=== PATIENT | female | born 1995 | race Caucasian/White ===

== ENCOUNTER 2021-02-01 16:32 | Inpatient (IN) | payer BC ==
[2021-02-01] MEDS ORDERED: Sodium Chloride 0.9% 10 ML SDV IV PRN (17:01)
[2021-02-01] MEDS ORDERED: Misoprostol 25 MCG (1/4 of 100 MCG) Tab VAG PRN ×4 (17:01→17:07)
[2021-02-01] MEDS ORDERED: Methylergonovine 0.2 MG/1 ML Amp IM PRN (17:01)
[2021-02-01] MEDS ORDERED: Sodium Chloride 0.9% 2.5 ML Syringe FLUSH PRN (17:01)
[2021-02-01] MEDS ORDERED: Water For Irrigation,Sterile 1,000 ML Container IRR PRN (17:01)
[2021-02-01] MEDS ORDERED: Lidocaine 1% 50 ML MDV INJECT PRN (17:01)
[2021-02-01] MEDS ORDERED: Terbutaline 1 MG/ML SDV SUBCUT PRN ×2 (17:01→17:07)
[2021-02-01] MEDS ORDERED: Butorphanol 1 MG/ML SDV IVPUSH PRN (17:01)
[2021-02-01] MEDS ORDERED: Nalbuphine 10 MG/1 ML Vial IVPUSH PRN (17:01)
[2021-02-01] MEDS ORDERED: Carboprost Tromethamine 250 MCG/1 ML Amp IM PRN (17:01)
[2021-02-01] MEDS ORDERED: Misoprostol 200 MCG Tab PO PRN (17:01)
[2021-02-01] MEDS ORDERED: Sodium Chloride 0.9% 10 ML Syringe FLUSH PRN (17:01)
[2021-02-01] MEDS ORDERED: Tranexamic Acid 1,000 MG in Sodium Chloride 0.9% 100 ML IV PRN (17:01)
[2021-02-01] MEDS ORDERED: Oxytocin/0.9 % Sodium Chloride 30 UNIT/500 ML BAG IV SCH ×3 (17:15)
[2021-02-01] MEDS: Lactated Ringers 1,000 ML IV SCH ×2 (17:45→23:05)
[2021-02-02 01:55] LABS: CARBON DIOXIDE,CO2 18.9 mmol/L (21.0-32.0); POTASSIUM,K 4.9 mmol/L (3.5-5.1)
[2021-02-02] MEDS: Lactated Ringers 1,000 ML IV SCH ×2 (03:59→07:53)
[2021-02-02] MEDS ORDERED: Ropivacaine HCl/PF 100 ML ONE (04:23)
[2021-02-02] MEDS ORDERED: fentaNYL 100 MCG/2 ML SDV ONE (04:23)
--- NOTE | 2021-02-02 04:40 | PCM.PREANE ---
Preanesthetic Assessment - Anesthesia/Transfusion/Family Hx Anesthesia History: No Prior Anesthesia Family History of Anesthesia Reaction: No Transfusion History: No Prior Transfusion(s) - Physical Assessment NPO Status Date: 02/02/21 NPO Status Time: 00:05 Height: 1.63 m Weight: 98.43 kg ASA Class: 2 - Lab Values: Laboratory Last Values WBC 16.91 K/uL (4.0-11.0) H 02/01/21 17:45 RBC 5.19 M/uL (4.30-5.90) 02/01/21 17:45 Hgb 15.3 g/dL (12.0-16.0) 02/01/21 17:45 Hct 44.7 % (36.0-46.0) 02/01/21 17:45 MCV 86.1 fL (80.0-98.0) 02/01/21 17:45 MCH 29.5 pg (27.0-32.0) 02/01/21 17:45 MCHC 34.2 g/dL (31.0-37.0) 02/01/21 17:45 RDW Std Deviation 44.1 fl (28.0-62.0) 02/01/21 17:45 RDW Coeff of Pan 15 % (11.0-15.0) 02/01/21 17:45 Plt Count 224 K/uL (150-400) 02/01/21 17:45 MPV 13.30 fL (7.40-12.00) H 02/01/21 17:45 Nucleated RBC % 0.0 /100WBC 02/01/21 17:45 Nucleated RBCs # 0 K/uL 02/01/21 17:45 Sodium 140 mmol/L (136-145) 02/01/21 17:45 Potassium 4.9 mmol/L (3.5-5.1) 02/01/21 17:45 Chloride 104 mmol/L (98-107) 02/01/21 17:45 Carbon Dioxide 18.9 mmol/L (21.0-32.0) L 02/01/21 17:45 BUN 23 mg/dL (7.0-18.0) H 02/01/21 17:45 Creatinine 1.2 mg/dL (0.6-1.0) H 02/01/21 17:45 Est Cr Clr Drug Dosing 60.81 mL/min 02/01/21 17:45 Estimated GFR (MDRD) 53.9 ml/min 02/01/21 17:45 Glucose 109 mg/dL (74-106) H 02/01/21 17:45 Uric Acid 10.7 mg/dL (2.6-7.2) H 02/01/21 17:45 Calcium 8.8 mg/dL (8.5-10.1) 02/01/21 17:45 Total Bilirubin 0.2 mg/dL (0.2-1.0) 02/01/21 17:45 AST 57 IU/L (15-37) H 02/01/21 17:45 ALT 113 IU/L (14-63) H 02/01/21 17:45 Alkaline Phosphatase 196 U/L (46-116) H 02/01/21 17:45 Total Protein 7.1 g/dL (6.4-8.2) 02/01/21 17:45 Albumin 3.3 g/dL (3.4-5.0) L 02/01/21 17:45 Globulin 3.8 g/dL (2.6-4.0) 02/01/21 17:45 Albumin/Globulin Ratio 0.9 (0.9-1.6) 02/01/21 17:45 Ur Random Creatinine 122.4 mg/dL 02/02/21 01:04 U Random Total Protein 29.7 mg/dL (<11.9) H 02/02/21 01:04 Protein/Creatinin Ratio 0.2 02/02/21 01:04 SARS-CoV-2 RNA (GREGG) NEGATIVE (NEGATIVE) 02/01/21 17:30 Blood Type O POSITIVE 02/01/21 17:45 Antibody Screen NEGATIVE 02/01/21 17:45 - Allergies Allergies/Adverse Reactions: Allergies Allergy/AdvReac Type Severity Reaction Status Date / Time No Known Allergies Allergy Verified 02/01/21 17:11 - Acknowledgements Anesthesia Type Planned: Epidural Pt an Appropriate Candidate for the Planned Anesthesia: Yes Alternatives and Risks of Anesthesia Discussed w Pt/Guardian: Yes Pt/Guardian Understands and Agrees with Anesthesia Plan: Yes PreAnesthesia Questionnaire - Past Health History Medical/Surgical History: Denies Medical/Surgical History - SUBSTANCE USE Tobacco Use Status *Q: Never Tobacco User Second Hand Smoke Exposure: No Recreational Drug Use History: No - CURRENT (IN HOUSE) MEDS Current Meds: Current Medications Butorphanol Tartrate (Butorphanol 1 Mg/Ml Sdv) 1 mg IVPUSH Q1H PRN PRN Reason: Pain Last Admin: 02/02/21 01:58 Dose: 1 mg Documented by: Carboprost Tromethamine (Carboprost Tromethamine 250 Mcg/1 Ml Amp) 250 mcg IM ASDIRECTED PRN PRN Reason: Post Hemorrhage Oxytocin/Sodium Chloride (Oxytocin 30 Unit/500 Ml-Ns) 30 unit in 500 mls @ 2 mls/hr IV TITRATE MADHU; Protocol Lactated Ringer's (Ringers, Lactated) 1,000 mls @ 150 mls/hr IV ASDIRECTED MADHU Last Admin: 02/02/21 03:59 Dose: 999 mls/hr Documented by: Oxytocin/Sodium Chloride (Oxytocin 30 Unit/500 Ml-Ns) 30 unit in 500 mls @ 999 mls/hr IV TITRATE MADHU Tranexamic Acid 1,000 mg/ (Sodium Chloride) 110 mls @ 660 mls/hr IV ONETIME PRN PRN Reason: Bleeding Lidocaine HCl (Lidocaine 1% 50 Ml Mdv) 50 ml INJECT ONETIME PRN PRN Reason: Laceration repair Methylergonovine Maleate (Methylergonovine 0.2 Mg/1 Ml Amp) 0.2 mg IM ASDIRECTED PRN PRN Reason: Post Hemorrhage Misoprostol (Misoprostol 25 Mcg (1/4 Of 100 Mcg) Tab) 25 mcg VAG ONETIME PRN PRN Reason: Cervical Ripening Last Admin: 02/01/21 18:26 Dose: 25 mcg Documented by: Misoprostol (Misoprostol 25 Mcg (1/4 Of 100 Mcg) Tab) 25 mcg VAG Q4H PRN PRN Reason: Cervical Ripening Last Admin: 02/01/21 23:37 Dose: 25 mcg Documented by: Misoprostol (Misoprostol 200 Mcg Tab) 200 mcg PO ONETIME PRN PRN Reason: Post Hemorrhage Nalbuphine HCl (Nalbuphine 10 Mg/1 Ml Vial) 10 mg IVPUSH Q1H PRN PRN Reason: Pain (severe 7-10) Sodium Chloride (Sodium Chloride 0.9% 10 Ml Syringe) 10 ml FLUSH ASDIRECTED PRN PRN Reason: Keep Vein Open Sodium Chloride (Sodium Chloride 0.9% 2.5 Ml Syringe) 2.5 ml FLUSH ASDIRECTED PRN PRN Reason: Keep Vein Open Sodium Chloride (Sodium Chloride 0.9% 10 Ml Sdv) 10 ml IV ASDIRECTED PRN PRN Reason: IV Use Sterile Water (Water For Irrigation,Sterile 1,000 Ml Container) 1,000 ml IRR ASDIRECTED PRN PRN Reason: delivery Terbutaline Sulfate (Terbutaline 1 Mg/Ml Sdv) 0.25 mg SUBCUT ASDIRECTED PRN PRN Reason: Tacysystole Discontinued Medications Fentanyl (Fentanyl 100 Mcg/2 Ml Sdv) Confirm Administered Dose 100 mcg .ROUTE .STK-MED ONE Stop: 02/02/21 04:24 Ropivacaine (Naropin 0.2%) Confirm Administered Dose 100 mls @ as directed .ROUTE .STK-MED ONE Stop: 02/02/21 04:24
--- NOTE | 2021-02-02 04:43 | PCM.PRNOTE ---
- Free Text/Narrative Note: Anes Note Patient requests epidural for L&D. Sitting position, level L3-L4 midline appraoch. Sterile technique. Choraprep scrub to lumbar area. Sterile fenestrated drape applied. Epidural space easily achived single attempt with ease using [place] technique. [place] at 3 cm. Cath threaded 5 cm with ease. Cath secured at skin using sterile clear adhesive dressing. 0430 Test 3 cc 1.4% lido with epi negative. 0435 Load 10 cc 0.2% ropiviciane with 1 mcg cc fentanyl inslow divided doses. 0440 Pumps started with 90 cc same solution. Rate is 8 cc hr with 6 cc q 20 min prn bolus. Siddhartha well. Time with patient [id number] Jong Bailey [employer]
[2021-02-02 06:21] LABS: CARBON DIOXIDE,CO2 21.3 mmol/L (21.0-32.0); POTASSIUM,K 3.9 mmol/L (3.5-5.1)
[2021-02-02] MEDS ORDERED: Oxytocin/0.9 % Sodium Chloride 30 UNIT/500 ML BAG ONE ×2 (07:22→12:09)
[2021-02-02] MEDS ORDERED: Calcium Gluconate 10% 1 GM/10 ML SDV IV PRN (07:46)
[2021-02-02] MEDS ORDERED: Magnesium Sulfate/Water 4 GM in Premix Bag 1 BAG IV ONE (07:46)
[2021-02-02] MEDS ORDERED: Magnesium Sulfate/Water 4 GM/100 ML BAG ONE (08:04)
[2021-02-02] MEDS ORDERED: Sodium Chloride 0.9% 1,000 ML IV ONE (08:33)
[2021-02-02] MEDS: Magnesium Sulfate/Water 20 GM/500 ML BAG IV SCH ×2 (08:46→18:51)
[2021-02-02] MEDS ORDERED: Ibuprofen 800 MG Tab PO PRN (11:57)
[2021-02-02] MEDS ORDERED: oxyCODONE 5 MG Tab PO PRN (11:57)
[2021-02-02] MEDS ORDERED: Docusate Sodium 100 MG Cap PO PRN (11:57)
[2021-02-02] MEDS ORDERED: Acetaminophen 500 MG Tab PO PRN (11:57)
[2021-02-02] MEDS ORDERED: Benzocaine/Menthol 20%-0.5% Spray 78 GM Cannister TOP PRN (11:57)
[2021-02-02] MEDS ORDERED: Bisacodyl 10 MG Supp RECTAL PRN (11:57)
[2021-02-02] MEDS ORDERED: Lanolin 100% Cream 7 GM Tube TOP PRN (11:57)
[2021-02-02] MEDS ORDERED: Witch Hazel Medicated Pads 40/Jar TOP PRN (11:57)
--- NOTE | 2021-02-02 12:07 | PCM.DEL ---
L & D Note - General Info Date of Service: 02/02/21 Mother's Due Date: 01/27/21 - Delivery Note Labor: Augmented by ARM, Augmented by Oxytocin Cervical Ripening Method: Prostaglandin E2 Delivery Outcome: Livebirth Infant Delivery Method: Spontaneous Vaginal Delivery-Single Presentation: Right Occiput Anterior (AIDEN) Nuchal Cord: Present (x2), Reduced (after delivery of body) Anesthesia Type: Epidural, Local Anesthetic: Lidocaine (Xylocaine) 1% Plain Amniotic Fluid Description: Meconium Stained Episiotomy Type: None Laceration: 1st Degree, Periurethral Suture type: Vicryl Suture size: 2-0 Placenta: Intact, Spontaneous Cord: 3 Vessels Estimated Blood Loss: 800 Resuscitation Needed: Yes Bishop: Suctioned, Cathether, Stimulated, Warmed, Warmer Used Provider: Martine Laird Score 1 min: 2 Score 5 min: 8 Delivery Comments (Free Text/Narrative):: Live male infant, weight 4100g. Given 1000mcg misoprostol per rectum, pitocin per IV, and 1g tranexamic acid IV. On magnesium for preeclampsia with severe features/HELLP syndrome - next labs due at 1230. Placenta sent to pathology. - General Info Date of Service: 02/02/21 - Patient Data Weight - Most Recent: 98.43 kg Lab Results Last 24 Hours: Laboratory Results - last 24 hr 02/01/21 02/01/21 02/01/21 Range/Units 17:30 17:45 17:45 WBC 16.91 H (4.0-11.0) K/uL RBC 5.19 (4.30-5.90) M/uL Hgb 15.3 (12.0-16.0) g/dL Hct 44.7 (36.0-46.0) % MCV 86.1 (80.0-98.0) fL MCH 29.5 (27.0-32.0) pg MCHC 34.2 (31.0-37.0) g/dL RDW Std Deviation 44.1 (28.0-62.0) fl RDW Coeff of Pan 15 (11.0-15.0) % Plt Count 224 (150-400) K/uL MPV 13.30 H (7.40-12.00) fL Nucleated RBC % 0.0 /100WBC Nucleated RBCs # 0 K/uL Cord ABG pH (7.18-7.38) Cord ABG Base Excess (-10--2) Cord VBG pH (7.25-7.45) Cord VBG Base Excess (-10--2) Sodium (136-145) mmol/L Potassium (3.5-5.1) mmol/L Chloride (98-107) mmol/L Carbon Dioxide (21.0-32.0) mmol/L BUN (7.0-18.0) mg/dL Creatinine (0.6-1.0) mg/dL Est Cr Clr Drug Dosing mL/min Estimated GFR (MDRD) ml/min Glucose (74-106) mg/dL Uric Acid (2.6-7.2) mg/dL Calcium (8.5-10.1) mg/dL Total Bilirubin (0.2-1.0) mg/dL AST (15-37) IU/L ALT (14-63) IU/L Alkaline Phosphatase (46-116) U/L Total Protein (6.4-8.2) g/dL Albumin (3.4-5.0) g/dL Globulin (2.6-4.0) g/dL Albumin/Globulin Ratio (0.9-1.6) Ur Random Creatinine mg/dL U Random Total Protein (<11.9) mg/dL Protein/Creatinin Ratio SARS-CoV-2 RNA (GREGG) NEGATIVE (NEGATIVE) Blood Type O POSITIVE Antibody Screen NEGATIVE 02/01/21 02/02/21 02/02/21 Range/Units 17:45 01:04 05:47 WBC 21.16 H (4.0-11.0) K/uL RBC 4.81 (4.30-5.90) M/uL Hgb 13.7 (12.0-16.0) g/dL Hct 41.7 (36.0-46.0) % MCV 86.7 (80.0-98.0) fL MCH 28.5 (27.0-32.0) pg MCHC 32.9 (31.0-37.0) g/dL RDW Std Deviation 45.0 (28.0-62.0) fl RDW Coeff of Pan 15 (11.0-15.0) % Plt Count 200 (150-400) K/uL MPV 12.60 H (7.40-12.00) fL Nucleated RBC % 0.2 /100WBC Nucleated RBCs # 0 K/uL Cord ABG pH (7.18-7.38) Cord ABG Base Excess (-10--2) Cord VBG pH (7.25-7.45) Cord VBG Base Excess (-10--2) Sodium 140 (136-145) mmol/L Potassium 4.9 (3.5-5.1) mmol/L Chloride 104 (98-107) mmol/L Carbon Dioxide 18.9 L (21.0-32.0) mmol/L BUN 23 H (7.0-18.0) mg/dL Creatinine 1.2 H (0.6-1.0) mg/dL Est Cr Clr Drug Dosing 60.81 mL/min Estimated GFR (MDRD) 53.9 ml/min Glucose 109 H (74-106) mg/dL Uric Acid 10.7 H (2.6-7.2) mg/dL Calcium 8.8 (8.5-10.1) mg/dL Total Bilirubin 0.2 (0.2-1.0) mg/dL AST 57 H (15-37) IU/L ALT 113 H (14-63) IU/L Alkaline Phosphatase 196 H (46-116) U/L Total Protein 7.1 (6.4-8.2) g/dL Albumin 3.3 L (3.4-5.0) g/dL Globulin 3.8 (2.6-4.0) g/dL Albumin/Globulin Ratio 0.9 (0.9-1.6) Ur Random Creatinine 122.4 mg/dL U Random Total Protein 29.7 H (<11.9) mg/dL Protein/Creatinin Ratio 0.2 SARS-CoV-2 RNA (GREGG) (NEGATIVE) Blood Type Antibody Screen 02/02/21 02/02/21 02/02/21 Range/Units 05:47 11:03 11:03 WBC (4.0-11.0) K/uL RBC (4.30-5.90) M/uL Hgb (12.0-16.0) g/dL Hct (36.0-46.0) % MCV (80.0-98.0) fL MCH (27.0-32.0) pg MCHC (31.0-37.0) g/dL RDW Std Deviation (28.0-62.0) fl RDW Coeff of Pan (11.0-15.0) % Plt Count (150-400) K/uL MPV (7.40-12.00) fL Nucleated RBC % /100WBC Nucleated RBCs # K/uL Cord ABG pH 7.264 (7.18-7.38) Cord ABG Base Excess -5 (-10--2) Cord VBG pH 7.356 (7.25-7.45) Cord VBG Base Excess -8 (-10--2) Sodium 139 (136-145) mmol/L Potassium 3.9 (3.5-5.1) mmol/L Chloride 105 (98-107) mmol/L Carbon Dioxide 21.3 (21.0-32.0) mmol/L BUN 20 H (7.0-18.0) mg/dL Creatinine 1.4 H (0.6-1.0) mg/dL Est Cr Clr Drug Dosing 52.12 mL/min Estimated GFR (MDRD) 45.1 ml/min Glucose 96 (74-106) mg/dL Uric Acid 11.1 H (2.6-7.2) mg/dL Calcium 9.1 (8.5-10.1) mg/dL Total Bilirubin 0.4 (0.2-1.0) mg/dL AST 67 H (15-37) IU/L ALT 131 H (14-63) IU/L Alkaline Phosphatase 175 H (46-116) U/L Total Protein 6.3 L (6.4-8.2) g/dL Albumin 2.7 L (3.4-5.0) g/dL Globulin 3.6 (2.6-4.0) g/dL Albumin/Globulin Ratio 0.8 L (0.9-1.6) Ur Random Creatinine mg/dL U Random Total Protein (<11.9) mg/dL Protein/Creatinin Ratio SARS-CoV-2 RNA (GREGG) (NEGATIVE) Blood Type Antibody Screen Med Orders - Current: Current Medications Butorphanol Tartrate (Butorphanol 1 Mg/Ml Sdv) 1 mg IVPUSH Q1H PRN PRN Reason: Pain Last Admin: 02/02/21 01:58 Dose: 1 mg Documented by: Calcium Gluconate (Calcium Gluconate 10% 1 Gm/10 Ml Sdv) 1 gm IV ASDIRECTED PRN PRN Reason: respiratory distress Carboprost Tromethamine (Carboprost Tromethamine 250 Mcg/1 Ml Amp) 250 mcg IM ASDIRECTED PRN PRN Reason: Post Hemorrhage Oxytocin/Sodium Chloride (Oxytocin 30 Unit/500 Ml-Ns) 30 unit in 500 mls @ 2 mls/hr IV TITRATE MADHU; Protocol Last Admin: 02/02/21 09:20 Dose: 2 munits/min, 2 mls/hr Documented by: Lactated Ringer's (Ringers, Lactated) 1,000 mls @ 150 mls/hr IV ASDIRECTED MADHU Last Infusion: 02/02/21 08:30 Dose: 10 mls/hr Documented by: Oxytocin/Sodium Chloride (Oxytocin 30 Unit/500 Ml-Ns) 30 unit in 500 mls @ 999 mls/hr IV TITRATE MADHU Tranexamic Acid 1,000 mg/ (Sodium Chloride) 110 mls @ 660 mls/hr IV ONETIME PRN PRN Reason: Bleeding Last Admin: 02/02/21 11:31 Dose: 660 mls/hr Documented by: Magnesium Sulfate (Magnesium Sulfate In Water 20 Gm/500 Ml) 20 gm in 500 mls @ 50 mls/hr IV ASDIRECTED MADHU Stop: 02/03/21 12:00 Last Admin: 02/02/21 08:46 Dose: 2 gm/hr, 50 mls/hr Documented by: Sodium Chloride (Normal Saline) 1,000 mls @ 10 mls/hr IV .BOLUS ONE Stop: 02/06/21 12:32 Last Admin: 02/02/21 08:25 Dose: 10 mls/hr Documented by: Lidocaine HCl (Lidocaine 1% 50 Ml Mdv) 50 ml INJECT ONETIME PRN PRN Reason: Laceration repair Methylergonovine Maleate (Methylergonovine 0.2 Mg/1 Ml Amp) 0.2 mg IM ASDIRECTED PRN PRN Reason: Post Hemorrhage Misoprostol (Misoprostol 25 Mcg (1/4 Of 100 Mcg) Tab) 25 mcg VAG ONETIME PRN PRN Reason: Cervical Ripening Last Admin: 02/01/21 18:26 Dose: 25 mcg Documented by: Misoprostol (Misoprostol 25 Mcg (1/4 Of 100 Mcg) Tab) 25 mcg VAG Q4H PRN PRN Reason: Cervical Ripening Last Admin: 02/01/21 23:37 Dose: 25 mcg Documented by: Misoprostol (Misoprostol 200 Mcg Tab) 200 mcg PO ONETIME PRN PRN Reason: Post Hemorrhage Last Admin: 02/02/21 11:12 Dose: 1,000 mcg Documented by: Nalbuphine HCl (Nalbuphine 10 Mg/1 Ml Vial) 10 mg IVPUSH Q1H PRN PRN Reason: Pain (severe 7-10) Sodium Chloride (Sodium Chloride 0.9% 10 Ml Syringe) 10 ml FLUSH ASDIRECTED PRN PRN Reason: Keep Vein Open Sodium Chloride (Sodium Chloride 0.9% 2.5 Ml Syringe) 2.5 ml FLUSH ASDIRECTED PRN PRN Reason: Keep Vein Open Sodium Chloride (Sodium Chloride 0.9% 10 Ml Sdv) 10 ml IV ASDIRECTED PRN PRN Reason: IV Use Sterile Water (Water For Irrigation,Sterile 1,000 Ml Container) 1,000 ml IRR ASDIRECTED PRN PRN Reason: delivery Terbutaline Sulfate (Terbutaline 1 Mg/Ml Sdv) 0.25 mg SUBCUT ASDIRECTED PRN PRN Reason: Tacysystole Discontinued Medications Fentanyl (Fentanyl 100 Mcg/2 Ml Sdv) Confirm Administered Dose 100 mcg .ROUTE .STK-MED ONE Stop: 02/02/21 04:24 Last Admin: 02/02/21 05:27 Dose: Not Given Documented by: Ropivacaine (Naropin 0.2%) Confirm Administered Dose 100 mls @ as directed .ROUTE .STK-MED ONE Stop: 02/02/21 04:24 Last Admin: 02/02/21 05:27 Dose: Not Given Documented by: Oxytocin/Sodium Chloride (Oxytocin 30 Unit/500 Ml-Ns) Confirm Administered Dose 30 unit in 500 mls @ as directed .ROUTE .STK-MED ONE Stop: 02/02/21 07:23 Magnesium Sulfate 4 gm/ Premix 100 mls @ 300 mls/hr IV BOLUS ONE Stop: 02/02/21 08:05 Last Admin: 02/02/21 08:25 Dose: 300 mls/hr Documented by: Magnesium Sulfate (Magnesium Sulfate In Water 4 Gm/100 Ml) Confirm Administered Dose 4 gm in 100 mls @ as directed .ROUTE .STK-MED ONE Stop: 02/02/21 08:05 - Problem List & Annotations (1) Vaginal delivery SNOMED Code(s): 560760834 Code(s): O80 - ENCOUNTER FOR FULL-TERM UNCOMPLICATED DELIVERY Status: Acute Current Visit: Yes (2) hemorrhage SNOMED Code(s): 22444821 Code(s): O72.1 - OTHER IMMEDIATE HEMORRHAGE Status: Acute Current Visit: Yes (3) HELLP (hemolytic anemia/elev liver enzymes/low platelets in ) SNOMED Code(s): 54681774 Code(s): O14.20 - HELLP SYNDROME (HELLP), UNSPECIFIED TRIMESTER Status: Acute Current Visit: Yes - Problem List Review Problem List Initiated/Reviewed/Updated: Yes - My Orders Last 24 Hours: My Active Orders 02/01/21 Dinner Clear Liquid Diet [DIET] 02/01/21 17:01 Patient Status [ADT] Routine Bedrest Bathroom Privileges [RC] ASDIRECTED Communication Order [RC] ASDIRECTED Communication Order [RC] ASDIRECTED Communication Order [RC] ASDIRECTED Heart Tones [RC] CONTINUOUS Non Stress Test [RC] PER UNIT ROUTINE May Shower [RC] ASDIRECTED Notify Provider [RC] PRN Notify Provider [RC] PRN Notify Provider [RC] PRN Notify Provider [RC] STAT Oxygen Therapy [RC] ASDIRECTED Up ad Kaci [RC] ASDIRECTED Vaginal Exam [RC] PRN Butorphanol [Stadol] 1 mg IVPUSH Q1H PRN Carboprost Tromethamine [Hemabate DS] 250 mcg IM ASDIRECTED PRN Lidocaine 1% [Xylocaine 1%] 50 ml INJECT ONETIME PRN Methylergonovine [Methergine] 0.2 mg IM ASDIRECTED PRN Nalbuphine [Nubain] 10 mg IVPUSH Q1H PRN Sodium Chloride 0.9% [Normal Saline] 10 ml IV ASDIRECTED PRN Sodium Chloride 0.9% [Saline Flush] 10 ml FLUSH ASDIRECTED PRN Sodium Chloride 0.9% [Saline Flush] 2.5 ml FLUSH ASDIRECTED PRN Terbutaline [Brethine] 0.25 mg SUBCUT ASDIRECTED PRN Tranexamic Acid [Cyklokapron] 1,000 mg Sodium Chloride 0.9% [Normal Saline] 100 ml IV ONETIME Water For Irrigation,Sterile [Sterile Water for Irrigation] 1,000 ml IRR ASDIRECTED PRN miSOPROStoL [Cytotec] 200 mcg PO ONETIME PRN miSOPROStoL [Cytotec] 25 mcg VAG ONETIME PRN miSOPROStoL [Cytotec] 25 mcg VAG Q4H PRN Scalp Electrode [WOMSER] Per Unit Routine Peripheral IV Insertion Adult [OM.PC] Routine Resuscitation Status Routine 02/01/21 17:08 Bedrest Bathroom Privileges [RC] ASDIRECTED Communication Order [RC] ASDIRECTED Communication Order [RC] ASDIRECTED Communication Order [RC] ASDIRECTED Notify Provider [RC] PRN Notify Provider [RC] PRN Notify Provider [RC] STAT Vital Signs [RC] PER UNIT ROUTINE 02/01/21 17:15 Lactated Ringers [Ringers, Lactated] 1,000 ml IV ASDIRECTED Oxytocin/0.9 % Sodium Chloride [Oxytocin 30 Unit/500 ML-NS] 30 unit in 500 ml IV TITRATE Oxytocin/0.9 % Sodium Chloride [Oxytocin 30 Unit/500 ML-NS] 30 unit in 500 ml IV TITRATE Medication Administration Instruction [OM.PC] Q3H Medication Administration Instruction [OM.PC] Q3H 02/01/21 17:45 RPR (SYPHILIS SERO) W/ RFLX [REF] Routine 02/02/21 Breakfast Nothing Per Oral Diet [DIET] 02/02/21 07:46 Bedrest [RC] ASDIRECTED Communication Order [RC] PRN Communication Order [RC] PRN Equipment to Bedside [RC] PRN Intake and Output [RC] QSHIFT Notify Provider Status Change [RC] ASDIRECTED Notify Provider [RC] PRN Oxygen Therapy [RC] PRN Vital Signs [RC] ASDIRECTED Calcium Gluconate 1 gm IV ASDIRECTED PRN 02/02/21 08:00 Magnesium Sulfate/Water [Magnesium Sulfate in Water 20 GM/500 ML] 20 gm in 500 ml IV ASDIRECTED Deep Tendon Reflexes [WOMSER] Q1H 02/02/21 08:33 Sodium Chloride 0.9% [Normal Saline] 1,000 ml IV .BOLUS 02/02/21 09:00 Deep Tendon Reflexes [WOMSER] Q1H 02/02/21 10:00 Deep Tendon Reflexes [WOMSER] Q1H 02/02/21 Lunch Regular Diet [DIET] Deep Tendon Reflexes [WOMSER] Q1H 02/02/21 11:57 Patient Status [ADT] Routine May Shower [RC] ASDIRECTED Notify Provider Vital Signs [RC] ASDIRECTED Up ad Kaci [RC] ASDIRECTED Vital Signs [RC] PER UNIT ROUTINE Acetaminophen [Tylenol Extra Strength] 1,000 mg PO Q6H PRN Benzocaine/Menthol [Dermoplast Pain Relief 20%-0.5% [place]] 78 gm TOP ASDIRECTED PRN Docusate Sodium [Colace] 100 mg PO BID PRN Ibuprofen [Motrin] 800 mg PO Q8H PRN Lanolin [Lansinoh HPA] See Dose Instructions TOP ASDIRECTED PRN bisacodyL [Dulcolax] 10 mg RECTAL ONETIME PRN oxyCODONE 5 mg PO Q2H PRN witch Sarah [Tucks] 1 pad TOP ASDIRECTED PRN Assess Lochia [WOMSER] Per Unit Routine Assess Uterine Involution [WOMSER] Per Unit Routine Breast Pump [WOMSER] Per Unit Routine DVT/VTE Prophylaxis Reflex [OM.PC] Routine Peripheral IV Discontinue [OM.PC] Routine 02/02/21 11:58 Cooling Warming Measures [RC] ASDIRECTED Ice Therapy [OM.PC] Per Unit Routine Perineal Care [OM.PC] Per Unit Routine Sitz Bath [OM.PC] Per Unit Routine 02/02/21 11:59 Antiembolic Devices [RC] .Routine VTE/DVT Education [RC] PER UNIT ROUTINE 02/02/21 12:00 CBC W/O DIFF,HEMOGRAM [HEME] Urgent COMPREHENSIVE METABOLIC PN,CMP [CHEM] Urgent URIC ACID [CHEM] Urgent Deep Tendon Reflexes [WOMSER] Q1H 02/02/21 12:35 MAGNESIUM [CHEM] Routine 02/02/21 13:00 Deep Tendon Reflexes [WOMSER] Q1H 02/02/21 14:00 Deep Tendon Reflexes [WOMSER] Q1H 02/02/21 15:00 Deep Tendon Reflexes [WOMSER] Q1H 02/02/21 16:00 Deep Tendon Reflexes [WOMSER] Q1H 02/02/21 17:00 Deep Tendon Reflexes [WOMSER] [facility] 02/02/21 18:00 Deep Tendon Reflexes [WOMSER] [facility] 02/02/21 19:00 Deep Tendon Reflexes [WOMSER] [facility] 02/02/21 20:00 Deep Tendon Reflexes [WOMSER] [facility] 02/02/21 21:00 Deep Tendon Reflexes [WOMSER] [facility] 02/02/21 22:00 Deep Tendon Reflexes [WOMSER] [facility] 02/02/21 23:00 Deep Tendon Reflexes [WOMSER] [facility] 02/03/21 00:00 Deep Tendon Reflexes [WOMSER] [facility] 02/03/21 01:00 Deep Tendon Reflexes [WOMSER] [facility] 02/03/21 02:00 Deep Tendon Reflexes [WOMSER] [facility] 02/03/21 03:00 Deep Tendon Reflexes [WOMSER] [facility] 02/03/21 04:00 Deep Tendon Reflexes [WOMSER] [facility] 02/03/21 05:00 Deep Tendon Reflexes [WOMSER] [facility] 02/03/21 05:11 CBC W/O DIFF,HEMOGRAM [HEME] AM COMPREHENSIVE METABOLIC PN,CMP [CHEM] AM URIC ACID [CHEM] AM 02/03/21 06:00 Deep Tendon Reflexes [WOMSER] [facility] 02/03/21 07:00 Deep Tendon Reflexes [WOMSER] [facility] 02/03/21 11:57 Urinary Catheter Removal [RC] PER UNIT ROUTINE - Assessment Assessment:: 25yo s/p at 40w6d - Plan Plan:: 1. Admit to unit 2. HELLP syndrome - Labs at 1230 and AM (if increased LFTs and Cr from this AM, will also check labs this evening). Continue Magnesium for seizure prophylaxis for 24 hours . SCDs while non-ambulatory from Magnesium. 3. hemorrhage - Monitor hemoglobin and bleeding. 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 5. Dispo - Will stay at least 48 hours , pending BP and labs.
[2021-02-02 13:46] LABS: CARBON DIOXIDE,CO2 16.1 mmol/L (21.0-32.0)
--- NOTE | 2021-02-02 14:01 | PCM.SN.2 ---
- Free Text/Narrative Note: Labs reviewed - platelets have remained stable; LFTs, Cr, uric acid increased. Will repeat CBC, CMP, uric acid at 1800. Monitor closely.
--- NOTE | 2021-02-02 14:50 | OR ---
SURGEON: Zeynep Huffman MD DATE OF PROCEDURE: 02/02/2021 PREOPERATIVE DIAGNOSES: 1. A 25-year-old, G1, P0, at 40 weeks and 5 days' gestation. 2. Induction of labor for post estimated date of delivery. 3. Group B Streptococcus negative. 4. Preeclampsia with severe features/HELLP syndrome. 5. Meconium-stained fluid. POSTOPERATIVE DIAGNOSES: 1. A 25-year-old, G1, P 1-0-0-1, at 40 weeks and 6 days' gestation. 2. Induction of labor. 3. Group B Streptococcus negative. 4. Preeclampsia with severe features/HELLP syndrome. 5. Meconium-stained fluid. 6. First-degree perineal laceration. PROCEDURE: Spontaneous vaginal delivery and repair of first-degree perineal laceration. PRIMARY SURGEON: Zeynep Huffman MD ANESTHESIA: Epidural and lidocaine. ESTIMATED BLOOD LOSS: 800 mL. FINDINGS: Live male in right occiput anterior position. Nuchal cord x2. score of 2 and 8 at one and five minutes respectively. Weight 4100 g. Arterial pH 7.264, base excess minus 5. Venous pH 7.356, base excess minus 8. Placenta intact and with 3-vessel cord. First-degree perineal laceration and perineal abrasions. INDICATION: This is a 25-year-old, G1, P0, who presented at 40 weeks and 5 days' gestation for scheduled induction of labor. On presentation, her cervix was found to be 1 cm dilated. She was started on Cytotec for cervical ripening and received two doses. She began rj. She underwent artificial rupture of membranes with meconium-stained fluid noted. She progressed to 6 cm dilated and received an epidural for pain control. After the epidural, hypotension occurred with late decelerations. These resolved with a bolus of fluids. Blood pressures were noted to be in the mild range and preeclampsia labs were obtained. The urine protein-creatinine ratio was 0.2. However, the LFTs were mildly elevated and the creatinine was 1.2. Platelets remained normal. She was allowed to continue laboring and the labs were recheck. Morning labs showed an increase in LFTs and creatinine, and she was diagnosed with preeclampsia with severe features/HELLP syndrome. She was started on magnesium for seizure prophylaxis. She progressed to complete cervical dilation and began pushing. I was called to the room. DESCRIPTION OF PROCEDURE: I arrived to the room with cervix completely dilated and head at +3 station. Over the next 20 minutes, the patient pushed and delivered a live male . The head was delivered followed by the shoulders. The nuchal cord x2 was reduced. The abdomen was stuck due to poor patient effort. With additional pushing efforts, the baby was delivered and noted to be floppy. The cord was clamped and cut. The was handed off to the nurse at the warmer. [employer] and additional help were called to the room for resuscitation. Cord gases and cord blood were obtained. The placenta then delivered intact and with 3-vessel cord via the Byrnes-Hou maneuver. The perineum was inspected and a first-degree perineal laceration was noted along with multiple perineal abrasions. After infiltration with 1% lidocaine, these were repaired to anatomy and hemostasis with 2-0 Vicryl. The fundus was firm. However, the lower uterine segment was intermittently atonic with clots and bleeding. 1000 mcg of misoprostol was given per rectum. Uterine atony continued with interval bleeding and 1 g of tranexamic acid was given IV. At this time, a bimanual exam was performed and a moderate amount of clot was evacuated from the uterus. After this, the bleeding was minimal. A catheter was replaced as the patient will be continued on magnesium for 24 hours . She will receive a second bag of Pitocin. She has labs pending at 1230 for liver and creatinine monitoring. [id number] / MODL /[id number] ARTURO
[2021-02-02 19:10] LABS: CARBON DIOXIDE,CO2 21.3 mmol/L (21.0-32.0); POTASSIUM,K 3.9 mmol/L (3.5-5.1)
[2021-02-02] MEDS: predniSONE 20 MG Tab PO SCH (22:16)
--- NOTE | 2021-02-03 06:52 | PCM48HPAN ---
Post Anesthesia Note - EVALUATION WITHIN 48HRS OF ANESTHETIC Vital Signs in Normal Range: Yes Patient Participated in Evaluation: Yes Respiratory Function Stable: Yes Airway Patent: Yes Cardiovascular Function Stable: Yes Hydration Status Stable: Yes Pain Control Satisfactory: Yes Nausea and Vomiting Control Satisfactory: Yes Mental Status Recovered: Yes Vital Signs: Last Vital Signs Temp 36.1 C 02/03/21 04:22 Pulse 79 02/03/21 04:22 Resp 16 02/03/21 04:22 BP 109/71 02/03/21 04:22 Pulse Ox 97 02/03/21 04:22 - COMMENTS/OBSERVATIONS Free Text/Narrative:: No anesthesia problems
[2021-02-03 06:58] LABS: CARBON DIOXIDE,CO2 25.8 mmol/L (21.0-32.0); POTASSIUM,K 4.3 mmol/L (3.5-5.1)
--- NOTE | 2021-02-03 07:51 | PCM.PNPP ---
- General Info Date of Service: 02/03/21 Subjective Update: Patient doing very well. Tolerating oral intake. Minimal pain that is controlled. Scant lochia. Denies preeclampsia symptoms. Supplementing due to lack of milk, but latch going well. Functional Status: Reports: Pain Controlled, Tolerating Diet - Review of Systems General: Reports: No Symptoms HEENT: Reports: No Symptoms Pulmonary: Reports: No Symptoms Cardiovascular: Reports: No Symptoms Gastrointestinal: Reports: No Symptoms Genitourinary: Reports: No Symptoms Musculoskeletal: Reports: No Symptoms Skin: Reports: No Symptoms Neurological: Reports: No Symptoms Psychiatric: Reports: No Symptoms - Patient Data Vital Signs - Most Recent: Last Vital Signs Temp 36.1 C 02/03/21 04:22 Pulse 79 02/03/21 04:22 Resp 16 02/03/21 04:22 BP 109/71 02/03/21 04:22 Pulse Ox 97 02/03/21 04:22 Weight - Most Recent: 98.43 kg I&O - Last 24 Hours: Intake & Output 02/02/21 02/03/21 02/03/21 22:59 06:59 14:59 Intake Total 490 Output Total 3550 1400 Balance -3060 -1400 Lab Results - Last 24 Hours: Laboratory Results - last 24 hr 02/02/21 02/02/21 02/02/21 Range/Units 11:03 11:03 12:55 WBC 33.62 H (4.0-11.0) K/uL RBC 4.41 (4.30-5.90) M/uL Hgb 12.7 (12.0-16.0) g/dL Hct 38.1 (36.0-46.0) % MCV 86.4 (80.0-98.0) fL MCH 28.8 (27.0-32.0) pg MCHC 33.3 (31.0-37.0) g/dL RDW Std Deviation 44.1 (28.0-62.0) fl RDW Coeff of Pan 14 (11.0-15.0) % Plt Count 215 (150-400) K/uL MPV 13.00 H (7.40-12.00) fL Nucleated RBC % 0.0 /100WBC Nucleated RBCs # 0 K/uL Cord ABG pH 7.264 (7.18-7.38) Cord ABG Base Excess -5 (-10--2) Cord VBG pH 7.356 (7.25-7.45) Cord VBG Base Excess -8 (-10--2) Sodium (136-145) mmol/L Potassium (3.5-5.1) mmol/L Chloride (98-107) mmol/L Carbon Dioxide (21.0-32.0) mmol/L BUN (7.0-18.0) mg/dL Creatinine (0.6-1.0) mg/dL Est Cr Clr Drug Dosing mL/min Estimated GFR (MDRD) ml/min Glucose (74-106) mg/dL Uric Acid (2.6-7.2) mg/dL Calcium (8.5-10.1) mg/dL Magnesium (1.8-2.4) mg/dL Total Bilirubin (0.2-1.0) mg/dL AST (15-37) IU/L ALT (14-63) IU/L Alkaline Phosphatase (46-116) U/L Total Protein (6.4-8.2) g/dL Albumin (3.4-5.0) g/dL Globulin (2.6-4.0) g/dL Albumin/Globulin Ratio (0.9-1.6) 02/02/21 02/02/21 02/02/21 Range/Units 12:55 12:55 18:11 WBC (4.0-11.0) K/uL RBC (4.30-5.90) M/uL Hgb (12.0-16.0) g/dL Hct (36.0-46.0) % MCV (80.0-98.0) fL MCH (27.0-32.0) pg MCHC (31.0-37.0) g/dL RDW Std Deviation (28.0-62.0) fl RDW Coeff of Pan (11.0-15.0) % Plt Count (150-400) K/uL MPV (7.40-12.00) fL Nucleated RBC % /100WBC Nucleated RBCs # K/uL Cord ABG pH (7.18-7.38) Cord ABG Base Excess (-10--2) Cord VBG pH (7.25-7.45) Cord VBG Base Excess (-10--2) Sodium 136 (136-145) mmol/L Potassium 4.0 (3.5-5.1) mmol/L Chloride 104 (98-107) mmol/L Carbon Dioxide 16.1 L (21.0-32.0) mmol/L BUN 25 H (7.0-18.0) mg/dL Creatinine 1.8 H (0.6-1.0) mg/dL Est Cr Clr Drug Dosing 40.54 mL/min Estimated GFR (MDRD) 33.8 ml/min Glucose 122 H (74-106) mg/dL Uric Acid 11.4 H (2.6-7.2) mg/dL Calcium 8.6 (8.5-10.1) mg/dL Magnesium 5.5 H 6.5 H (1.8-2.4) mg/dL Total Bilirubin 0.3 (0.2-1.0) mg/dL AST 85 H (15-37) IU/L ALT 142 H (14-63) IU/L Alkaline Phosphatase 156 H (46-116) U/L Total Protein 5.9 L (6.4-8.2) g/dL Albumin 2.5 L (3.4-5.0) g/dL Globulin 3.4 (2.6-4.0) g/dL Albumin/Globulin Ratio 0.7 L (0.9-1.6) 02/02/21 02/02/21 02/03/21 Range/Units 18:11 18:11 00:53 WBC 31.55 H (4.0-11.0) K/uL RBC 4.19 L (4.30-5.90) M/uL Hgb 12.2 (12.0-16.0) g/dL Hct 35.6 L (36.0-46.0) % MCV 85.0 (80.0-98.0) fL MCH 29.1 (27.0-32.0) pg MCHC 34.3 (31.0-37.0) g/dL RDW Std Deviation 43.9 (28.0-62.0) fl RDW Coeff of Pan 14 (11.0-15.0) % Plt Count 204 (150-400) K/uL MPV 12.70 H (7.40-12.00) fL Nucleated RBC % 0.0 /100WBC Nucleated RBCs # 0 K/uL Cord ABG pH (7.18-7.38) Cord ABG Base Excess (-10--2) Cord VBG pH (7.25-7.45) Cord VBG Base Excess (-10--2) Sodium 137 (136-145) mmol/L Potassium 3.9 (3.5-5.1) mmol/L Chloride 104 (98-107) mmol/L Carbon Dioxide 21.3 (21.0-32.0) mmol/L BUN 22 H (7.0-18.0) mg/dL Creatinine 1.5 H (0.6-1.0) mg/dL Est Cr Clr Drug Dosing 48.65 mL/min Estimated GFR (MDRD) 41.7 ml/min Glucose 111 H (74-106) mg/dL Uric Acid 12.4 H (2.6-7.2) mg/dL Calcium 8.1 L (8.5-10.1) mg/dL Magnesium 5.9 H (1.8-2.4) mg/dL Total Bilirubin 0.4 (0.2-1.0) mg/dL AST 75 H (15-37) IU/L ALT 129 H (14-63) IU/L Alkaline Phosphatase 142 H (46-116) U/L Total Protein 5.3 L (6.4-8.2) g/dL Albumin 2.4 L (3.4-5.0) g/dL Globulin 2.9 (2.6-4.0) g/dL Albumin/Globulin Ratio 0.8 L (0.9-1.6) 02/03/21 02/03/21 02/03/21 Range/Units 06:29 06:29 06:29 WBC 26.48 H (4.0-11.0) K/uL RBC 3.90 L (4.30-5.90) M/uL Hgb 11.3 L (12.0-16.0) g/dL Hct 33.6 L (36.0-46.0) % MCV 86.2 (80.0-98.0) fL MCH 29.0 (27.0-32.0) pg MCHC 33.6 (31.0-37.0) g/dL RDW Std Deviation 44.8 (28.0-62.0) fl RDW Coeff of Pan 15 (11.0-15.0) % Plt Count 199 (150-400) K/uL MPV 12.10 H (7.40-12.00) fL Nucleated RBC % 0.0 /100WBC Nucleated RBCs # 0 K/uL Cord ABG pH (7.18-7.38) Cord ABG Base Excess (-10--2) Cord VBG pH (7.25-7.45) Cord VBG Base Excess (-10--2) Sodium 140 (136-145) mmol/L Potassium 4.3 (3.5-5.1) mmol/L Chloride 106 (98-107) mmol/L Carbon Dioxide 25.8 (21.0-32.0) mmol/L BUN 23 H (7.0-18.0) mg/dL Creatinine 1.6 H (0.6-1.0) mg/dL Est Cr Clr Drug Dosing 45.61 mL/min Estimated GFR (MDRD) 38.7 ml/min Glucose 114 H (74-106) mg/dL Uric Acid 13.1 H (2.6-7.2) mg/dL Calcium 7.5 L (8.5-10.1) mg/dL Magnesium 5.3 H (1.8-2.4) mg/dL Total Bilirubin 0.3 (0.2-1.0) mg/dL AST 48 H (15-37) IU/L ALT 101 H (14-63) IU/L Alkaline Phosphatase 132 H (46-116) U/L Total Protein 5.8 L (6.4-8.2) g/dL Albumin 2.2 L (3.4-5.0) g/dL Globulin 3.6 (2.6-4.0) g/dL Albumin/Globulin Ratio 0.6 L (0.9-1.6) Med Orders - Current: Current Medications Acetaminophen (Acetaminophen 500 Mg Tab) 1,000 mg PO Q6H PRN PRN Reason: Pain Benzocaine/Menthol (Benzocaine/Menthol 20%-0.5% [place] 78 Gm Cannister) 78 gm TOP ASDIRECTED PRN PRN Reason: Perineal Comfort Measure Last Admin: 02/02/21 18:51 Dose: 1 can Documented by: Bisacodyl (Bisacodyl 10 Mg Supp) 10 mg RECTAL ONETIME PRN PRN Reason: Constipation Butorphanol Tartrate (Butorphanol 1 Mg/Ml Sdv) 1 mg IVPUSH Q1H PRN PRN Reason: Pain Last Admin: 02/02/21 01:58 Dose: 1 mg Documented by: Calcium Gluconate (Calcium Gluconate 10% 1 Gm/10 Ml Sdv) 1 gm IV ASDIRECTED PRN PRN Reason: respiratory distress Carboprost Tromethamine (Carboprost Tromethamine 250 Mcg/1 Ml Amp) 250 mcg IM ASDIRECTED PRN PRN Reason: Post Hemorrhage Docusate Sodium (Docusate Sodium 100 Mg Cap) 100 mg PO BID PRN PRN Reason: Constipation Emollient Ointment (Lanolin 100% Cream 7 Gm Tube) 0 gm TOP ASDIRECTED PRN PRN Reason: Sore Nipples Last Admin: 02/02/21 18:50 Dose: 7 gm Documented by: Oxytocin/Sodium Chloride (Oxytocin 30 Unit/500 Ml-Ns) 30 unit in 500 mls @ 2 mls/hr IV TITRATE [facility] [place]; Protocol Last Titration: 02/02/21 11:05 Dose: 999 munits/min, 999 mls/hr Documented by: Lactated Ringer's (Ringers, Lactated) 1,000 mls @ 150 mls/hr IV ASDIRECTED MADHU Last Infusion: 02/02/21 08:30 Dose: 10 mls/hr Documented by: Oxytocin/Sodium Chloride (Oxytocin 30 Unit/500 Ml-Ns) 30 unit in 500 mls @ 999 mls/hr IV TITRATE MADHU Last Admin: 02/02/21 12:13 Dose: 999 mls/hr Documented by: Tranexamic Acid 1,000 mg/ (Sodium Chloride) 110 mls @ 660 mls/hr IV ONETIME PRN PRN Reason: Bleeding Last Admin: 02/02/21 11:31 Dose: 660 mls/hr Documented by: Magnesium Sulfate (Magnesium Sulfate In Water 20 Gm/500 Ml) 20 gm in 500 mls @ 50 mls/hr IV ASDIRECTED MADHU Stop: 02/03/21 12:00 Last Infusion: 02/02/21 21:06 Dose: 1 gm/hr, 25 mls/hr Documented by: Sodium Chloride (Normal Saline) 1,000 mls @ 10 mls/hr IV .BOLUS ONE Stop: 02/06/21 12:32 Last Admin: 02/02/21 08:25 Dose: 10 mls/hr Documented by: Ibuprofen (Ibuprofen 800 Mg Tab) 800 mg PO Q8H PRN PRN Reason: Pain Lidocaine HCl (Lidocaine 1% 50 Ml Mdv) 50 ml INJECT ONETIME PRN PRN Reason: Laceration repair Methylergonovine Maleate (Methylergonovine 0.2 Mg/1 Ml Amp) 0.2 mg IM ASDIRECTED PRN PRN Reason: Post Hemorrhage Misoprostol (Misoprostol 25 Mcg (1/4 Of 100 Mcg) Tab) 25 mcg VAG ONETIME PRN PRN Reason: Cervical Ripening Last Admin: 02/01/21 18:26 Dose: 25 mcg Documented by: Misoprostol (Misoprostol 25 Mcg (1/4 Of 100 Mcg) Tab) 25 mcg VAG Q4H PRN PRN Reason: Cervical Ripening Last Admin: 02/01/21 23:37 Dose: 25 mcg Documented by: Misoprostol (Misoprostol 200 Mcg Tab) 200 mcg PO ONETIME PRN PRN Reason: Post Hemorrhage Last Admin: 02/02/21 11:12 Dose: 1,000 mcg Documented by: Nalbuphine HCl (Nalbuphine 10 Mg/1 Ml Vial) 10 mg IVPUSH Q1H PRN PRN Reason: Pain (severe 7-10) Oxycodone HCl (Oxycodone 5 Mg Tab) 5 mg PO Q2H PRN PRN Reason: Pain Prednisone (Prednisone 20 Mg Tab) 40 mg PO DAILY MADHU Stop: 02/04/21 09:01 Last Admin: 02/02/21 22:16 Dose: Not Given Documented by: Sodium Chloride (Sodium Chloride 0.9% 10 Ml Syringe) 10 ml FLUSH ASDIRECTED PRN PRN Reason: Keep Vein Open Sodium Chloride (Sodium Chloride 0.9% 2.5 Ml Syringe) 2.5 ml FLUSH ASDIRECTED PRN PRN Reason: Keep Vein Open Sodium Chloride (Sodium Chloride 0.9% 10 Ml Sdv) 10 ml IV ASDIRECTED PRN PRN Reason: IV Use Sterile Water (Water For Irrigation,Sterile 1,000 Ml Container) 1,000 ml IRR ASDIRECTED PRN PRN Reason: delivery Terbutaline Sulfate (Terbutaline 1 Mg/Ml Sdv) 0.25 mg SUBCUT ASDIRECTED PRN PRN Reason: Tacysystole Witch Sandra (Witch Sandra Medicated Pads 40/Jar) 1 pad TOP ASDIRECTED PRN PRN Reason: comfort care Last Admin: 02/02/21 18:51 Dose: 1 tub Documented by: Discontinued Medications Fentanyl (Fentanyl 100 Mcg/2 Ml Sdv) Confirm Administered Dose 100 mcg .ROUTE .STK-MED ONE Stop: 02/02/21 04:24 Last Admin: 02/02/21 05:27 Dose: Not Given Documented by: Ropivacaine (Naropin 0.2%) Confirm Administered Dose 100 mls @ as directed .ROUTE .STK-MED ONE Stop: 02/02/21 04:24 Last Admin: 02/02/21 05:27 Dose: Not Given Documented by: Oxytocin/Sodium Chloride (Oxytocin 30 Unit/500 Ml-Ns) Confirm Administered Dose 30 unit in 500 mls @ as directed .ROUTE .STK-MED ONE Stop: 02/02/21 07:23 Last Admin: 02/02/21 15:55 Dose: Not Given Documented by: Magnesium Sulfate 4 gm/ Premix 100 mls @ 300 mls/hr IV BOLUS ONE Stop: 02/02/21 08:05 Last Admin: 02/02/21 08:25 Dose: 300 mls/hr Documented by: Magnesium Sulfate (Magnesium Sulfate In Water 4 Gm/100 Ml) Confirm Administered Dose 4 gm in 100 mls @ as directed .ROUTE .STK-MED ONE Stop: 02/02/21 08:05 Last Admin: 02/03/21 04:50 Dose: Not Given Documented by: Oxytocin/Sodium Chloride (Oxytocin 30 Unit/500 Ml-Ns) Confirm Administered Dose 30 unit in 500 mls @ as directed .ROUTE .STK-MED ONE Stop: 02/02/21 12:10 Last Admin: 02/02/21 15:56 Dose: Not Given Documented by: Prednisone (Prednisone 20 Mg Tab Own Med) 20 mg PO DAILY [facility] [place] Last Admin: 02/02/21 22:16 Dose: 40 mg Documented by: - Infant Interaction Disposition, : [place] in Room with Family Feeding: Attempted ; Nursed Fair/Poor, Bottle Fed Infant Support Person: - Recovery Exam Fundal Tone: Firm Fundal Level: 1 Fingerbreadths Below Umbilicus Fundal Placement: Midline Lochia Amount: Scant, Small Lochia Color: Rubra/Red Other Perinuem Description: 1st degree laceration with repair. Bladder Status: Indwelling Catheter in Place Urinary Elimination: Indwelling Catheter - Exam General: Alert, Oriented Neck: Supple Lungs: Normal Respiratory Effort GI/Abdominal Exam: Soft, Non-Tender, No Distention Extremities: Non-Tender, No Pedal Edema Skin: Warm, Dry, Intact Neurological: No New Focal Deficit Psy/Mental Status: Alert, Normal Affect, Normal Mood - Problem List & Annotations (1) Vaginal delivery SNOMED Code(s): 257210606 Code(s): O80 - ENCOUNTER FOR FULL-TERM UNCOMPLICATED DELIVERY Status: Acute Current Visit: Yes (2) hemorrhage SNOMED Code(s): 65718564 Code(s): O72.1 - OTHER IMMEDIATE HEMORRHAGE Status: Acute Curr ent Visit: Yes (3) HELLP (hemolytic anemia/elev liver enzymes/low platelets in ) SNOMED Code(s): 68113661 Code(s): O14.20 - HELLP SYNDROME (HELLP), UNSPECIFIED TRIMESTER Status: Acute Current Visit: Yes - Problem List Review Problem List Initiated/Reviewed/Updated: Yes - My Orders Last 24 Hours: My Active Orders 02/02/21 07:46 Equipment to Bedside [RC] PRN Intake and Output [RC] QSHIFT Notify Provider Status Change [RC] ASDIRECTED Notify Provider [RC] PRN Oxygen Therapy [RC] PRN Vital Signs [RC] ASDIRECTED Calcium Gluconate 1 gm IV ASDIRECTED PRN 02/02/21 08:00 Magnesium Sulfate/Water [Magnesium Sulfate in Water 20 GM/500 ML] 20 gm in 500 ml IV ASDIRECTED Deep Tendon Reflexes [WOMSER] Q1H 02/02/21 08:33 Sodium Chloride 0.9% [Normal Saline] 1,000 ml IV .BOLUS 02/02/21 09:00 Deep Tendon Reflexes [WOMSER] Q1H 02/02/21 10:00 Deep Tendon Reflexes [WOMSER] Q1H 02/02/21 Lunch Regular Diet [DIET] Deep Tendon Reflexes [WOMSER] Q1H 02/02/21 11:57 Patient Status [ADT] Routine May Shower [RC] ASDIRECTED Notify Provider Vital Signs [RC] ASDIRECTED Up ad Kaci [RC] ASDIRECTED Acetaminophen [Tylenol Extra Strength] 1,000 mg PO Q6H PRN Benzocaine/Menthol [Dermoplast Pain Relief 20%-0.5% [place]] 78 gm TOP ASDIRECTED PRN Docusate Sodium [Colace] 100 mg PO BID PRN Ibuprofen [Motrin] 800 mg PO Q8H PRN Lanolin [Lansinoh HPA] See Dose Instructions TOP ASDIRECTED PRN bisacodyL [Dulcolax] 10 mg RECTAL ONETIME PRN oxyCODONE 5 mg PO Q2H PRN witch Sandra [Tucks] 1 pad TOP ASDIRECTED PRN Assess Lochia [WOMSER] Per Unit Routine Assess Uterine Involution [WOMSER] Per Unit Routine Breast Pump [WOMSER] Per Unit Routine DVT/VTE Prophylaxis Reflex [OM.PC] Routine Peripheral IV Discontinue [OM.PC] Routine 02/02/21 11:58 Cooling Warming Measures [RC] ASDIRECTED Ice Therapy [OM.PC] Per Unit Routine Perineal Care [OM.PC] Per Unit Routine Sitz Bath [OM.PC] Per Unit Routine 02/02/21 11:59 Antiembolic Devices [RC] .Routine VTE/DVT Education [RC] PER UNIT ROUTINE 02/02/21 12:00 Deep Tendon Reflexes [WOMSER] Q1H 02/02/21 13:00 Deep Tendon Reflexes [WOMSER] Q1H 02/02/21 14:00 Deep Tendon Reflexes [WOMSER] Q1H 02/02/21 15:00 Deep Tendon Reflexes [WOMSER] Q1H 02/02/21 16:00 Deep Tendon Reflexes [WOMSER] Q1H 02/02/21 17:00 Deep Tendon Reflexes [WOMSER] Q1H 02/02/21 18:00 Deep Tendon Reflexes [WOMSER] Q1H 02/02/21 19:00 Deep Tendon Reflexes [WOMSER] Q1H 02/02/21 20:00 Deep Tendon Reflexes [WOMSER] Q1H 02/02/21 21:00 Deep Tendon Reflexes [WOMSER] Q1H 02/02/21 22:00 Deep Tendon Reflexes [WOMSER] Q1H 02/02/21 23:00 Deep Tendon Reflexes [WOMSER] Q1H 24/21 00:00 Deep Tendon Reflexes [WOMSER] 02/03/21 01:00 Deep Tendon Reflexes [WOMSER] 02/03/21 02:00 Deep Tendon Reflexes [WOMSER] 02/03/21 03:00 Deep Tendon Reflexes [WOMSER] 02/03/21 04:00 Deep Tendon Reflexes [WOMSER] 02/03/21 05:00 Deep Tendon Reflexes [WOMSER] 02/03/21 06:00 Deep Tendon Reflexes [WOMSER] 02/03/21 07:00 Deep Tendon Reflexes [WOMSER] 02/03/21 11:57 Urinary Catheter Removal [RC] PER UNIT ROUTINE 02/04/21 05:11 CBC W/O DIFF,HEMOGRAM [HEME] AM COMPREHENSIVE METABOLIC PN,CMP [CHEM] AM URIC ACID [CHEM] AM - Assessment Assessment:: 25yo s/p at 40w6d, PPD#1 - Plan Plan:: 1. Preeclampsia with severe features - Labs this morning improved, will re-check tomorrow morning. Continue Magnesium for seizure prophylaxis for 24 hours . SCDs while non-ambulatory from Magnesium. BP check next week in clinic. 2. hemorrhage - Hemoglobin stable and minimal lochia, continue to monitor. 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 4. Dispo - Likely discharge home tomorrow after 24 hours off Magnesium if labs continue to improve and BPs normal.
[2021-02-03] MEDS: predniSONE 20 MG Tab PO SCH ×2 (09:11→09:14)
[2021-02-03] MEDS ORDERED: Misoprostol 200 MCG Tab ONE (12:28)
[2021-02-03] MEDS ORDERED: Lidocaine 1% 50 ML MDV ONE (12:29)
[2021-02-04 06:38] LABS: CARBON DIOXIDE,CO2 27.2 mmol/L (21.0-32.0); POTASSIUM,K 4.1 mmol/L (3.5-5.1)
--- NOTE | 2021-02-04 08:15 | PCM.PNPP ---
- General Info Date of Service: 02/04/21 Subjective Update: Patient doing very well. Minimal lochia. Tolerating oral intake. Ambulating without dizziness. Still working on - latch good, waiting for milk to come in. Denies preeclampsia symptoms. Functional Status: Reports: Pain Controlled, Tolerating Diet, Ambulating, Urinating - Review of Systems General: Reports: No Symptoms HEENT: Reports: No Symptoms Pulmonary: Reports: No Symptoms Cardiovascular: Reports: No Symptoms Gastrointestinal: Reports: No Symptoms Genitourinary: Reports: No Symptoms Musculoskeletal: Reports: No Symptoms Skin: Reports: No Symptoms Neurological: Reports: No Symptoms Psychiatric: Reports: No Symptoms - Patient Data Vital Signs - Most Recent: Last Vital Signs Temp 36.8 C 02/04/21 04:47 Pulse 77 02/04/21 04:47 Resp 16 02/04/21 04:47 BP 104/61 02/04/21 04:47 Pulse Ox 98 02/04/21 04:47 Weight - Most Recent: 98.43 kg I&O - Last 24 Hours: Intake & Output 02/03/21 02/04/21 02/04/21 22:59 06:59 14:59 Output Total 500 Balance -500 Lab Results - Last 24 Hours: Laboratory Results - last 24 hr 02/01/21 02/04/21 02/04/21 Range/Units 17:45 05:55 05:55 WBC 24.85 H (4.0-11.0) K/uL RBC 3.49 L (4.30-5.90) M/uL Hgb 10.1 L (12.0-16.0) g/dL Hct 30.6 L (36.0-46.0) % MCV 87.7 (80.0-98.0) fL MCH 28.9 (27.0-32.0) pg MCHC 33.0 (31.0-37.0) g/dL RDW Std Deviation 47.7 (28.0-62.0) fl RDW Coeff of Pan 15 (11.0-15.0) % Plt Count 214 (150-400) K/uL MPV 11.70 (7.40-12.00) fL Nucleated RBC % 0.2 /100WBC Nucleated RBCs # 0 K/uL Sodium 140 (136-145) mmol/L Potassium 4.1 (3.5-5.1) mmol/L Chloride 107 (98-107) mmol/L Carbon Dioxide 27.2 (21.0-32.0) mmol/L BUN 24 H (7.0-18.0) mg/dL Creatinine 1.2 H (0.6-1.0) mg/dL Est Cr Clr Drug Dosing 60.81 mL/min Estimated GFR (MDRD) 53.9 ml/min Glucose 88 (74-106) mg/dL Uric Acid 11.9 H (2.6-7.2) mg/dL Calcium 8.5 (8.5-10.1) mg/dL Total Bilirubin 0.1 L (0.2-1.0) mg/dL AST 25 (15-37) IU/L ALT 60 (14-63) IU/L Alkaline Phosphatase 107 (46-116) U/L Total Protein 5.7 L (6.4-8.2) g/dL Albumin 2.1 L (3.4-5.0) g/dL Globulin 3.6 (2.6-4.0) g/dL Albumin/Globulin Ratio 0.6 L (0.9-1.6) RPR Non-Reac (Non-Reac) Med Orders - Current: Current Medications Acetaminophen (Acetaminophen 500 Mg Tab) 1,000 mg PO Q6H PRN PRN Reason: Pain Benzocaine/Menthol (Benzocaine/Menthol 20%-0.5% Harrison 78 Gm Cannister) 78 gm TOP ASDIRECTED PRN PRN Reason: Perineal Comfort Measure Last Admin: 02/02/21 18:51 Dose: 1 can Documented by: Bisacodyl (Bisacodyl 10 Mg Supp) 10 mg RECTAL ONETIME PRN PRN Reason: Constipation Butorphanol Tartrate (Butorphanol 1 Mg/Ml Sdv) 1 mg IVPUSH Q1H PRN PRN Reason: Pain Last Admin: 02/02/21 01:58 Dose: 1 mg Documented by: Calcium Gluconate (Calcium Gluconate 10% 1 Gm/10 Ml Sdv) 1 gm IV ASDIRECTED PRN PRN Reason: respiratory distress Carboprost Tromethamine (Carboprost Tromethamine 250 Mcg/1 Ml Amp) 250 mcg IM ASDIRECTED PRN PRN Reason: Post Hemorrhage Docusate Sodium (Docusate Sodium 100 Mg Cap) 100 mg PO BID PRN PRN Reason: Constipation Last Admin: 02/03/21 09:10 Dose: 100 mg Documented by: Emollient Ointment (Lanolin 100% Cream 7 Gm Tube) 0 gm TOP ASDIRECTED PRN PRN Reason: Sore Nipples Last Admin: 02/02/21 18:50 Dose: 7 gm Documented by: Oxytocin/Sodium Chloride (Oxytocin 30 Unit/500 Ml-Ns) 30 unit in 500 mls @ 2 mls/hr IV TITRATE MADHU; Protocol Last Titration: 02/02/21 11:05 Dose: 999 munits/min, 999 mls/hr Documented by: Lactated Ringer's (Ringers, Lactated) 1,000 mls @ 150 mls/hr IV ASDIRECTED MADHU Last Infusion: 02/02/21 08:30 Dose: 10 mls/hr Documented by: Oxytocin/Sodium Chloride (Oxytocin 30 Unit/500 Ml-Ns) 30 unit in 500 mls @ 999 mls/hr IV TITRATE MADHU Last Admin: 02/02/21 12:13 Dose: 999 mls/hr Documented by: Tranexamic Acid 1,000 mg/ (Sodium Chloride) 110 mls @ 660 mls/hr IV ONETIME PRN PRN Reason: Bleeding Last Admin: 02/02/21 11:31 Dose: 660 mls/hr Documented by: Sodium Chloride (Normal Saline) 1,000 mls @ 10 mls/hr IV .BOLUS ONE Stop: 02/06/21 12:32 Last Admin: 02/02/21 08:25 Dose: 10 mls/hr Documented by: Ibuprofen (Ibuprofen 800 Mg Tab) 800 mg PO Q8H PRN PRN Reason: Pain Lidocaine HCl (Lidocaine 1% 50 Ml Mdv) 50 ml INJECT ONETIME PRN PRN Reason: Laceration repair Methylergonovine Maleate (Methylergonovine 0.2 Mg/1 Ml Amp) 0.2 mg IM ASDIRECTED PRN PRN Reason: Post Hemorrhage Misoprostol (Misoprostol 25 Mcg (1/4 Of 100 Mcg) Tab) 25 mcg VAG ONETIME PRN PRN Reason: Cervical Ripening Last Admin: 02/01/21 18:26 Dose: 25 mcg Documented by: Misoprostol (Misoprostol 25 Mcg (1/4 Of 100 Mcg) Tab) 25 mcg VAG Q4H PRN PRN Reason: Cervical Ripening Last Admin: 02/01/21 23:37 Dose: 25 mcg Documented by: Misoprostol (Misoprostol 200 Mcg Tab) 200 mcg PO ONETIME PRN PRN Reason: Post Hemorrhage Last Admin: 02/02/21 11:12 Dose: 1,000 mcg Documented by: Nalbuphine HCl (Nalbuphine 10 Mg/1 Ml Vial) 10 mg IVPUSH Q1H PRN PRN Reason: Pain (severe 7-10) Oxycodone HCl (Oxycodone 5 Mg Tab) 5 mg PO Q2H PRN PRN Reason: Pain Prednisone 20 Mg Tab 2 each PO DAILY MADHU Stop: 02/05/21 09:01 Sodium Chloride (Sodium Chloride 0.9% 10 Ml Syringe) 10 ml FLUSH ASDIRECTED PRN PRN Reason: Keep Vein Open Sodium Chloride (Sodium Chloride 0.9% 2.5 Ml Syringe) 2.5 ml FLUSH ASDIRECTED PRN PRN Reason: Keep Vein Open Sodium Chloride (Sodium Chloride 0.9% 10 Ml Sdv) 10 ml IV ASDIRECTED PRN PRN Reason: IV Use Sterile Water (Water For Irrigation,Sterile 1,000 Ml Container) 1,000 ml IRR ASDIRECTED PRN PRN Reason: delivery Terbutaline Sulfate (Terbutaline 1 Mg/Ml Sdv) 0.25 mg SUBCUT ASDIRECTED PRN PRN Reason: Tacysystole Witch Sandra (Witch Sandra Medicated Pads 40/Jar) 1 pad TOP ASDIRECTED PRN PRN Reason: comfort care Last Admin: 02/02/21 18:51 Dose: 1 tub Documented by: Discontinued Medications Fentanyl (Fentanyl 100 Mcg/2 Ml Sdv) Confirm Administered Dose 100 mcg .ROUTE .STK-MED ONE Stop: 02/02/21 04:24 Last Admin: 02/02/21 05:27 Dose: Not Given Documented by: Ropivacaine (Naropin 0.2%) Confirm Administered Dose 100 mls @ as directed .ROUTE .STK-MED ONE Stop: 02/02/21 04:24 Last Admin: 02/02/21 05:27 Dose: Not Given Documented by: Oxytocin/Sodium Chloride (Oxytocin 30 Unit/500 Ml-Ns) Confirm Administered Dose 30 unit in 500 mls @ as directed .ROUTE .STK-MED ONE Stop: 02/02/21 07:23 Last Admin: 02/02/21 15:55 Dose: Not Given Documented by: Magnesium Sulfate 4 gm/ Premix 100 mls @ 300 mls/hr IV BOLUS ONE Stop: 02/02/21 08:05 Last Admin: 02/02/21 08:25 Dose: 300 mls/hr Documented by: Magnesium Sulfate (Magnesium Sulfate In Water 20 Gm/500 Ml) 20 gm in 500 mls @ 50 mls/hr IV ASDIRECTED [facility] Stop: 02/03/21 12:00 Last Infusion: 02/02/21 21:06 Dose: 1 gm/hr, 25 mls/hr Documented by: Magnesium Sulfate (Magnesium Sulfate In Water 4 Gm/100 Ml) Confirm Administered Dose 4 gm in 100 mls @ as directed .ROUTE .STK-MED ONE Stop: 02/02/21 08:05 Last Admin: 02/03/21 04:50 Dose: Not Given Documented by: Oxytocin/Sodium Chloride (Oxytocin 30 Unit/500 Ml-Ns) Confirm Administered Dose 30 unit in 500 mls @ as directed .ROUTE .STK-MED ONE Stop: 02/02/21 12:10 Last Admin: 02/02/21 15:56 Dose: Not Given Documented by: Lidocaine HCl (Lidocaine 1% 50 Ml Mdv) Confirm Administered Dose 50 ml .ROUTE .STK-MED ONE Stop: 02/03/21 12:30 Last Admin: 02/03/21 20:30 Dose: Not Given Documented by: Misoprostol (Misoprostol 200 Mcg Tab) Confirm Administered Dose 1,000 mcg .ROUTE .STK-MED ONE Stop: 02/03/21 12:29 Last Admin: 02/03/21 20:30 Dose: Not Given Documented by: Prednisone (Prednisone 20 Mg Tab Own Med) 20 mg PO DAILY [facility] Last Admin: 02/02/21 22:16 Dose: 40 mg Documented by: Prednisone (Prednisone 20 Mg Tab) 40 mg PO DAILY [facility] Stop: 02/04/21 09:01 Last Admin: 02/03/21 09:14 Dose: 40 mg Documented by: Tranexamic Acid (Tranexamic Acid 1,000 Mg/10 Ml Amp) Confirm Administered Dose 1,000 mg .ROUTE .STK-MED ONE Stop: 02/03/21 12:31 Last Admin: 02/03/21 20:30 Dose: Not Given Documented by: - Interaction Infant Disposition, : in Room with Family Feeding: Attempted ; Nursed Fair/Poor, Bottle Fed Support Person: - Recovery Exam Fundal Tone: Firm Fundal Level: 1 Fingerbreadths Below Umbilicus Fundal Placement: Midline Lochia Amount: Scant, Small Lochia Color: Rubra/Red Other Perinuem Description: 1st degree laceration with repair. Bladder Status: Voiding Urinary Elimination: Voided - Exam General: Alert, Oriented Neck: Supple Lungs: Normal Respiratory Effort GI/Abdominal Exam: Soft, Non-Tender, No Distention Extremities: No Pedal Edema Skin: Warm, Dry, Intact Neurological: No New Focal Deficit Psy/Mental Status: Alert, Normal Affect, Normal Mood - Problem List & Annotations (1) Vaginal delivery SNOMED Code(s): 907745574 Code(s): O80 - ENCOUNTER FOR FULL-TERM UNCOMPLICATED DELIVERY Status: Acute Current Visit: Yes (2) hemorrhage SNOMED Code(s): 99664932 Code(s): O72.1 - OTHER IMMEDIATE HEMORRHAGE Status: Acute Current Visit: Yes (3) Pre-eclampsia, severe SNOMED Code(s): 21943477 Code(s): O14.10 - SEVERE PRE-ECLAMPSIA, UNSPECIFIED TRIMESTER Status: Acute Current Visit: Yes - Problem List Review Problem List Initiated/Reviewed/Updated: Yes - My Orders Last 24 Hours: My Active Orders 02/04/21 08:12 Ready for Discharge [RC] PER UNIT ROUTINE - Assessment Assessment:: 25yo s/p at 40w6d, PPD#2 - Plan Plan:: 1. Preeclampsia with severe features - s/p Magnesium for seizure prophylaxis. Labs continue to improve, LFTs have normalized. BP check next week in clinic. 2. hemorrhage - Hemoglobin stable and minimal lochia. 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 4. Dispo - Discharge home today. Reviewed discharge instructions/precautions, preeclampsia precautions. BP check in 1 week. All questions answered.
[2021-02-04] MEDS ORDERED: predniSONE 20 MG Tab PO SCH (09:00)
== END 2021-02-04 11:05 | disposition home or self-care (01) | DRG 560 ==
LOC: MW.OBCHECK 16:32 → MW.OB 16:32 → MW.OBCHECK 17:01 → OBSVTOIN 02-02 11:03 → MW.OB 02-02 17:49
PROVIDERS: ADMIT Obstetrics & Gynecology; ATTEND Obstetrics & Gynecology
PROC: 10E0XZZ Delivery of Products of Conception, External Approach (ICD-10-PCS; principal; 2021-02-02)
PROC: 10907ZC Drainage of Amniotic Fluid, Therapeutic from Products of Conception, Via Natural or Artificial Opening (ICD-10-PCS; 2021-02-02)
PROC: 3E0P7VZ Introduction of Hormone into Female Reproductive, Via Natural or Artificial Opening (ICD-10-PCS; 2021-02-02)
PROC: 0HQ9XZZ Repair Perineum Skin, External Approach (ICD-10-PCS; 2021-02-02)
PROC: 3E0R3BZ Introduction of Anesthetic Agent into Spinal Canal, Percutaneous Approach (ICD-10-PCS; 2021-02-02)
PROC: 00HU33Z Insertion of Infusion Device into Spinal Canal, Percutaneous Approach (ICD-10-PCS; 2021-02-02)
DX: O77.0 Labor and delivery complicated by meconium in amniotic fluid (principal); Z37.0 Single live birth; O70.0 First degree perineal laceration during delivery; O72.1 Other immediate postpartum hemorrhage; O14.24 HELLP syndrome, complicating childbirth; G51.0 Bell's palsy; O99.354 Diseases of the nervous system complicating childbirth; Z3A.40 40 weeks gestation of pregnancy; Z20.822 Contact with and (suspected) exposure to COVID-19
CPT/HCPCS: 01967; 36415; 51702; 59025; 59409; 80053; 82570; 82803; 83735; 84156; 84550; 85027; 86592; 86850; 86900; 86901; 88307; A9270-GY; J0595; J2590; J3475; J7030; J7120; U0002

== ENCOUNTER 2022-11-17 01:03 | Inpatient (IN) | payer BC ==
[2022-11-17] MEDS ORDERED: Carboprost Tromethamine 250 MCG/1 ML Amp IM PRN (01:36)
[2022-11-17] MEDS ORDERED: Water For Irrigation,Sterile 1,000 ML Container IRR PRN (01:36)
[2022-11-17] MEDS ORDERED: Sodium Chloride 0.9% 20 ML SDV IV PRN ×2 (01:36→19:24)
[2022-11-17] MEDS ORDERED: Sodium Chloride 0.9% 2.5 ML Syringe FLUSH PRN ×2 (01:36→19:24)
[2022-11-17] MEDS ORDERED: Terbutaline 1 MG/ML SDV SUBCUT PRN (01:36)
[2022-11-17] MEDS ORDERED: Butorphanol 1 MG/ML SDV IVPUSH PRN (01:36)
[2022-11-17] MEDS ORDERED: Lidocaine 1% 50 ML MDV INJECT PRN (01:36)
[2022-11-17] MEDS ORDERED: Methylergonovine 0.2 MG/1 ML Amp IM PRN ×2 (01:36→21:40)
[2022-11-17] MEDS ORDERED: Misoprostol 200 MCG Tab PO PRN (01:36)
[2022-11-17] MEDS ORDERED: Sodium Chloride 0.9% 10 ML Syringe FLUSH PRN ×2 (01:36→19:24)
[2022-11-17] MEDS ORDERED: Tranexamic Acid 1,000 MG in Sodium Chloride 0.9% 100 ML IV PRN ×2 (01:36→21:40)
[2022-11-17] MEDS ORDERED: Oxytocin/0.9 % Sodium Chloride 30 UNIT/500 ML BAG IV SCH ×3 (01:45→19:30)
[2022-11-17] MEDS ORDERED: Misoprostol 25 MCG (1/4 of 100 MCG) Tab VAG PRN (02:00)
[2022-11-17] MEDS: Lactated Ringers 1,000 ML IV SCH ×3 (06:18→14:14)
[2022-11-17] MEDS: Misoprostol 25 MCG (1/4 of 100 MCG) Tab VAG PRN ×2 (06:35→11:25)
[2022-11-17] MEDS ORDERED: Ropivacaine/PF 400 MG/200 ML PCA ONE (10:21)
[2022-11-17] MEDS ORDERED: Bupivacaine 0.5% 10 ML SDV ONE ×3 (10:21→21:30)
[2022-11-17] MEDS ORDERED: ePHEDrine 50 MG/ML SDV IVPUSH PRN (10:57)
[2022-11-17] MEDS ORDERED: Ropivacaine HCl/PF 400 MG in Premix Bag 1 BAG EPIDUR SCH (11:00)
[2022-11-17] MEDS: ePHEDrine 50 MG/ML SDV IVPUSH PRN ×6 (12:39→17:09)
[2022-11-17] MEDS: Phenylephrine HCl In 0.9% NaCl 1 MG/10 ML Vial IVPUSH PRN ×4 (17:07→18:59)
[2022-11-17] MEDS: Phenylephrine HCl In 0.9% NaCl 1 MG/10 ML Vial IVPUSH SCH ×2 (17:42→18:02)
[2022-11-17] MEDS ORDERED: ceFAZolin 2 GM in Premix Bag 1 BAG IV ONE (19:24)
[2022-11-17] MEDS ORDERED: Citric Acid/Sodium Citrate Solution 30 ML Cup PO ONE (19:24)
[2022-11-17] MEDS ORDERED: Lactated Ringers 1,000 ML IV SCH ×2 (19:30→21:45)
[2022-11-17] MEDS ORDERED: fentaNYL 100 MCG/2 ML SDV ONE (19:32)
[2022-11-17] MEDS ORDERED: Morphine PF 10 MG/10 ML SDV ONE (19:33)
[2022-11-17] MEDS ORDERED: Ketorolac 30 MG/ML SDV ONE (19:41)
[2022-11-17] MEDS ORDERED: Ondansetron 4 MG/2 ML SDV ONE (19:41)
[2022-11-17] MEDS ORDERED: Ropivacaine 0.5% 5 MG/ML 30 ML SDV ONE (19:41)
[2022-11-17] MEDS ORDERED: Dexamethasone 4 MG/ML 5 ML MDV ONE (19:41)
[2022-11-17] MEDS ORDERED: Oxytocin 10 Units/1 ML SDV ONE (19:41)
[2022-11-17] MEDS ORDERED: Lidocaine 2% 5 ML SDV ONE (20:25)
[2022-11-17] MEDS ORDERED: ceFAZolin 1 GM Vial ONE (21:16)
[2022-11-17] MEDS ORDERED: Acetaminophen/oxyCODONE 325-5 MG Tab PO PRN (21:40)
[2022-11-17] MEDS ORDERED: diphenhydrAMINE 50 MG/ML SDV IVPUSH PRN (21:40)
[2022-11-17] MEDS ORDERED: Bisacodyl 10 MG Supp RECTAL PRN (21:40)
[2022-11-17] MEDS ORDERED: Ondansetron 4 MG/2 ML SDV IVPUSH PRN (21:40)
[2022-11-17] MEDS ORDERED: Misoprostol 200 MCG Tab RECTAL PRN (21:40)
[2022-11-17] MEDS ORDERED: Lanolin 100% Cream 7 GM Tube TOP PRN (21:40)
[2022-11-17] MEDS ORDERED: Oxytocin 10 Units/1 ML SDV IM PRN (21:40)
[2022-11-18] MEDS: Ketorolac 30 MG/ML SDV IVPUSH SCH ×3 (02:57→14:56)
[2022-11-18] MEDS: Docusate Sodium 100 MG Cap PO SCH ×2 (09:14→21:29)
[2022-11-18] MEDS ORDERED: Ketorolac 30 MG/ML SDV IVPUSH SCH (21:00)
[2022-11-19] MEDS: Acetaminophen/oxyCODONE 325-5 MG Tab PO PRN ×2 (03:35→10:00)
[2022-11-19] MEDS ORDERED: Ibuprofen 800 MG Tab PO PRN (08:00)
[2022-11-19] MEDS: Docusate Sodium 100 MG Cap PO SCH (09:44)
== END 2022-11-19 14:41 | disposition home or self-care (01) | DRG 540 ==
LOC: MW.OBCHECK 01:03 → MW.OB 01:04 → MW.OBCHECK 01:49 → OBSVTOIN 19:25 → MW.OB 23:50
PROVIDERS: ADMIT Obstetrics & Gynecology; ATTEND Obstetrics & Gynecology
PROC: 10D00Z1 Extraction of Products of Conception, Low, Open Approach (ICD-10-PCS; principal; 2022-11-17)
PROC: 10907ZC Drainage of Amniotic Fluid, Therapeutic from Products of Conception, Via Natural or Artificial Opening (ICD-10-PCS; 2022-11-17)
PROC: 3E033VJ Introduction of Other Hormone into Peripheral Vein, Percutaneous Approach (ICD-10-PCS; 2022-11-17)
PROC: 10H07YZ Insertion of Other Device into Products of Conception, Via Natural or Artificial Opening (ICD-10-PCS; 2022-11-17)
DX: O40.3XX0 Polyhydramnios, third trimester, not applicable or unspecified (principal); Z3A.38 38 weeks gestation of pregnancy; Z37.0 Single live birth; O36.63X0 Maternal care for excessive fetal growth, third trimester, not applicable or unspecified; O26.53 Maternal hypotension syndrome, third trimester; O69.1XX0 Labor and delivery complicated by cord around neck, with compression, not applicable or unspecified; O76 Abnormality in fetal heart rate and rhythm complicating labor and delivery; O99.214 Obesity complicating childbirth
CPT/HCPCS: 01961; 01967; 36415; 51702; 59025; 64488; 85014; 85018; 85027; 86592; 86850; 86900; 86901; 86920; A9270-GY; J0690; J1100; J1885; J2274; J2405; J2590; J2795; J3010; J3105; J3490; J7120; U0002

== ENCOUNTER 2025-05-26 04:54 | Inpatient (IN) | payer BC ==
[2025-05-26] MEDS ORDERED: Sodium Chloride 0.9% 10 ML Syringe FLUSH PRN (05:18)
[2025-05-26] MEDS ORDERED: ceFAZolin 2 GM in Water For Injection, Sterile 20 ML IVPUSH ONE (05:18)
[2025-05-26] MEDS ORDERED: Sodium Chloride 0.9% 2.5 ML Syringe FLUSH PRN (05:18)
[2025-05-26] MEDS ORDERED: Citric Acid/Sodium Citrate Solution 30 ML Cup PO ONE (05:18)
[2025-05-26] MEDS ORDERED: Oxytocin/0.9 % Sodium Chloride 30 UNIT/500 ML BAG IV SCH (05:30)
[2025-05-26] MEDS: Lactated Ringers 1,000 ML IV SCH ×2 (06:03→09:57)
[2025-05-26 06:28] LABS: MEAN PLATELET VOLUME 11.8 fL (9.4-12.3); NRBC ABSOLUTE 0.00 K/uL (0.00-0.02); NRBC PERCENT 0.0 /100WBC (0.0-0.2); PLATELET COUNT,PLT 153 K/uL (150-400); RED BLOOD CELL COUNT 4.69 M/uL (4.10-5.30); WHITE BLOOD CELL COUNT,WBC 14.44 K/uL (3.9-11.3)
[2025-05-26] MEDS ORDERED: Ketorolac 30 MG/ML SDV ONE (07:16)
[2025-05-26] MEDS ORDERED: fentaNYL 100 MCG/2 ML SDV ONE (07:16)
[2025-05-26] MEDS ORDERED: Ropivacaine 0.5% 5 MG/ML 30 ML SDV ONE (07:16)
[2025-05-26] MEDS ORDERED: Oxytocin 10 Units/1 ML SDV ONE (07:16)
[2025-05-26] MEDS ORDERED: Ondansetron 4 MG/2 ML SDV ONE (07:16)
[2025-05-26] MEDS ORDERED: Morphine PF 10 MG/10 ML SDV ONE (07:17)
[2025-05-26] MEDS ORDERED: Phenylephrine 1% 10 MG/ML SDV ONE (07:23)
[2025-05-26] MEDS ORDERED: diphenhydrAMINE 50 MG/ML SDV IVPUSH PRN ×2 (08:52→08:58)
[2025-05-26] MEDS ORDERED: Oxytocin 10 Units/1 ML SDV IM PRN (08:52)
[2025-05-26] MEDS ORDERED: Naloxone 0.4 MG/ML SDV IVPUSH PRN ×2 (08:52→08:58)
[2025-05-26] MEDS ORDERED: Lanolin 100% Cream 7 GM Tube TOP PRN (08:52)
[2025-05-26] MEDS ORDERED: Ondansetron 4 MG/2 ML SDV IVPUSH PRN ×2 (08:58)
[2025-05-26] MEDS ORDERED: Nalbuphine 10 MG/1 ML Vial IVPUSH PRN (08:58)
[2025-05-26] MEDS ORDERED: fentaNYL 100 MCG/2 ML SDV IVPUSH PRN (08:58)
[2025-05-26] MEDS ORDERED: Albuterol 0.083% 2.5 MG/3 ML Neb Soln NEB PRN (08:58)
[2025-05-26] MEDS ORDERED: fentaNYL 50 MCG/ML SDV IVPUSH PRN (08:58)
[2025-05-26] MEDS ORDERED: Acetaminophen/oxyCODONE 325-5 MG Tab PO PRN (08:58)
[2025-05-26] MEDS ORDERED: Ketorolac 30 MG/ML SDV IVPUSH SCH (09:00)
[2025-05-26] MEDS: ePHEDrine 50 MG/ML SDV IM ONE (09:50)
[2025-05-26 09:51] LABS: PH,UMBILICAL ARTERIAL 7.27 (7.18-7.38)
[2025-05-26 09:52] LABS: PH,UMBILICAL VENOUS 7.33 (7.25-7.45)
[2025-05-26] MEDS: Ondansetron 4 MG/2 ML SDV IVPUSH PRN (10:23)
[2025-05-26] MEDS: Ketorolac 30 MG/ML SDV IVPUSH SCH (14:30)
== END 2025-05-28 14:20 | disposition home or self-care (01) | DRG 540 ==
LOC: MW.OB 04:54
PROVIDERS: ADMIT Obstetrics & Gynecology; ATTEND Obstetrics & Gynecology
PROC: 10D00Z1 Extraction of Products of Conception, Low, Open Approach (ICD-10-PCS; principal; 2025-05-26 08:00)
DX: O34.211 Maternal care for low transverse scar from previous cesarean delivery (principal); O99.214 Obesity complicating childbirth; Z3A.39 39 weeks gestation of pregnancy; Z37.0 Single live birth; Z79.899 Other long term (current) drug therapy
CPT/HCPCS: 01961; 36415; 64488; 82803; 85014; 85018; 85027; 86592; 86850; 86900; 86901; A9270-GY; J0173; J0665; J0690; J1100; J1885; J2274; J2371; J2405; J2590; J2795; J3010; J3490; J7120